=== PATIENT | male | born 1945 | race Caucasian/White ===

== ENCOUNTER 2017-12-20 09:24 | Emergency (ER) | payer MEDICARE, BC ==
--- NOTE | 2017-12-20 10:19 | EDM.PDOC ---
ED HPI GENERAL MEDICAL PROBLEM - General Chief Complaint: Cardiovascular Problem Stated Complaint: SOB,IRREGULAR HEARTBEAT,A FIB Time Seen by Provider: 12/20/17 09:50 Source of Information: Reports: Patient, Family History Limitations: Reports: No Limitations - History of Present Illness INITIAL COMMENTS - FREE TEXT/NARRATIVE: 72-year-old male has had increased problems with rate control of his atrial fibrillation over the last several days, he feels his pulse racing faster than it has in the past causing some mild shortness of breath. He has no chest pain. He did have some medication adjustments a few weeks ago with cardiology. He called the clinic today to discuss the recent medication changes and his symptoms and they sent him to the emergency room. He arrived with the atrial fibrillation rate of 79, O2 sats normal and in no distress. The has a letter with electrolytes that were drawn one month ago in the cardiology clinic , they looked normal. Onset: Gradual (Seems to be worse over the last week) - Related Data Allergies Allergy/AdvReac Type Severity Reaction Status Date / Time No Known Allergies Allergy Verified 12/20/17 09:44 Home Meds: Home Meds Hydrochlorothiazide 50 mg PO DAILY 05/13/15 [History] Latanoprost 1 drop EYEBOTH BEDTIME 05/13/15 [History] Lisinopril 40 mg PO BID 05/13/15 [History] Metoprolol Tartrate [Lopressor] 25 mg PO BID 05/13/15 [History] Multivitamin with Minerals [Multiple Vitamin] 1 tab PO DAILY 05/13/15 [History] Potassium Chloride 10 meq PO DAILY 05/13/15 [History] Sotalol HCl [Sotalol] 80 mg PO BID 05/13/15 [History] Warfarin Sodium 7.5 mg PO DAILY 05/13/15 [History] Allopurinol [Zyloprim] 100 mg PO DAILY 11/09/16 [History] Pravastatin Sodium [Pravachol] 40 mg PO QPM 11/09/16 [History] Triamcinolone Acetonide [Kenalog 0.1% Crm] 1 applic TOP TID PRN 11/09/16 [ History] Past Medical History HEENT History: Reports: Impaired Vision Cardiovascular History: Reports: Afib, High Cholesterol, Hypertension, [place] Respiratory History: Reports: Sleep Apnea Endocrine/Metabolic History: Reports: Obesity/BMI 30+ Hematologic History: Reports: Blood Transfusion(s) Dermatologic History: Reports: Cellulitis - Infectious Disease History Infectious Disease History: Reports: Chicken Pox, Measles, Mumps - Past Surgical History HEENT Surgical History: Reports: Cataract Surgery, Eye Surgery Cardiovascular Surgical History: Reports: Coronary Artery Stent Other Cardiovascular Surgeries/Procedures: stent placement 10 years GI Surgical History: Reports: Hernia Repair/Other Male Surgical History: Reports: Vasectomy Musculoskeletal Surgical History: Reports: Hip Replacement, Knee Replacement Social & Family History - Tobacco Use Smoking Status *Q: Former Smoker Years of Tobacco use: 10 Used Tobacco, but Quit: Yes Month/Year Tobacco Last Used: 20 years Second Hand Smoke Exposure: No - Caffeine Use Caffeine Use: Reports: Coffee - Alcohol Use Days Per Week of Alcohol Use: 2 Number of Drinks Per Day: 2 Total Drinks Per Week: 4 - Recreational Drug Use Recreational Drug Use: No ED ROS GENERAL - Review of Systems Review Of Systems: See Below Constitutional: Denies: Fever, Chills, Malaise HEENT: Reports: No Symptoms Respiratory: Reports: Shortness of Breath. Denies: Wheezing, Cough Cardiovascular: Reports: Palpitations, Other (Struggling with chronic lower extremity edema). Denies: Chest Pain GI/Abdominal: Denies: Abdominal Pain, Nausea, Vomiting Neurological: Reports: No Symptoms Psychiatric: Reports: No Symptoms ED EXAM, GENERAL - Physical Exam Exam: See Below Exam Limited By: No Limitations General Appearance: Alert, No Apparent Distress Head: Atraumatic Respiratory/Chest: No Respiratory Distress, Lungs Clear Cardiovascular: Irregularly Irregular. No: Tachycardia GI/Abdominal: Other (Patient is obese, abdomen is nontender) Extremities: Pedal Edema (1+ symmetric edema below the knees) Neurological: Alert, Oriented EKG INTERPRETATION Rhythm: A-Fib QRS: LBBB EKG Interpretation Comments: The patient had good rate control and no acute changes. Course - Vital Signs Last Recorded V/S: Last Vital Signs Temp 98.2 F 12/20/17 09:42 Pulse 81 12/20/17 09:42 Resp 17 12/20/17 09:42 BP Pulse Ox 98 12/20/17 09:42 - Orders/Labs/Meds Orders: Active Orders 24 hr Category Date Time Status EKG Documentation Completion [RC] ASDIRECTED Care 12/20/17 10:17 Active Chest 2V [CR] Routine Exams 12/20/17 10:11 Taken EKG 12 Lead [EK] Routine Ther 12/20/17 10:17 Ordered Labs: Laboratory Tests 12/20/17 12/20/17 Range/Units 10:30 10:30 WBC 8.5 (4.5-11.0) K/uL RBC 4.69 (4.30-5.90) M/uL Hgb 14.7 (12.0-15.0) g/dL Hct 44.3 (40.0-54.0) % MCV 95 (80-98) fL MCH 31 (27-31) pg MCHC 33 (32-36) % Plt Count 154 (150-400) K/uL Neut % (Auto) 65 (36-66) % Lymph % (Auto) 21 L (24-44) % Cobb % (Auto) 13 H (2-6) % Eos % (Auto) 2 (2-4) % Baso % (Auto) 0 (0-1) % Sodium 143 (140-148) mmol/L Potassium 4.4 (3.6-5.2) mmol/L Chloride 107 (100-108) mmol/L Carbon Dioxide 26 (21-32) mmol/L Anion Gap 10.0 (5.0-14.0) mmol/L BUN 37 H (7-18) mg/dL Creatinine 1.5 H (0.8-1.3) mg/dL Est Cr Clr Drug Dosing 44.61 mL/min Estimated GFR (MDRD) 46 L (>60) Glucose 102 (74-106) mg/dL Calcium 8.9 (8.5-10.1) mg/dL Troponin I < 0.017 (0.000-0.056) ng/mL - Re-Assessments/Exams Free Text/Narrative Re-Assessment/Exam: 12/20/17 10:42 Patient was kept on ekg monitor tech and maintained a ventricular response rate to atrial fibrillation under 100. O2 saturations also remain normal. A two-view chest x-ray was obtained as well as a CBC, BMP and troponin. 12/20/17 11:18 CBC was normal, troponin negative. BMP only showed some renal insufficiency with a creatinine of 1.5, this was compared to 1.1 just a month ago so the patient was encouraged to stay hydrated. He may want to recheck this again in the next several weeks. He decided he is going to go back on the brand name medications which he felt better on and if he is not improving satisfactorily he will recheck. Departure - Departure Time of Disposition: 11:27 Disposition: Home, Self-Care 01 Condition: Good Clinical Impression: Palpitations, Exertional shortness of breath Instructions: Atrial Fibrillation, [id number]-Ocgw Referrals: Sabino Alston MD [Primary Care Provider] - Forms: ED Department Discharge Care Plan Goals: Continue medications as prescribed, different forms or brand names may be beneficial. Avoid extra salt intake and recheck at any time if not improving satisfactorily. Return to the emergency room if you develop chest pain or worsening shortness of breath. - My Orders Last 24 Hours: My Active Orders 12/20/17 10:11 Chest 2V [CR] Routine 12/20/17 10:17 EKG Documentation Completion [RC] ASDIRECTED EKG 12 Lead [EK] Routine - Assessment/Plan Last 24 Hours: My Active Orders 12/20/17 10:11 Chest 2V [CR] Routine 12/20/17 10:17 EKG Documentation Completion [RC] ASDIRECTED EKG 12 Lead [EK] Routine
--- NOTE | 2017-12-20 16:08 | CR ---
CHEST: 2 view CLINICAL HISTORY:Dyspnea COMPARISON:None FINDINGS: There is cardiomegaly. Pulmonary vascularity is normal. There is some mild elevation left hemidiaphragm. There are some patchy density in the left lower lung field most likely patchy atelecta sis. IMPRESSION: Patchy left lower lobe density most likely patchy atelectasis. Infiltrate is felt less l ikely Cardiomegaly
== END 2017-12-20 11:27 | disposition home or self-care (01) ==
LOC: JP.ED 09:24
DX: R00.2 Palpitations (principal); R06.02 Shortness of breath; I48.91 Unspecified atrial fibrillation; I10 Essential (primary) hypertension; I25.2 Old myocardial infarction; E78.00 Pure hypercholesterolemia, unspecified; E66.9 Obesity, unspecified; Z87.891 Personal history of nicotine dependence; Z79.899 Other long term (current) drug therapy; Z79.01 Long term (current) use of anticoagulants
CPT/HCPCS: 36415; 71046; 71046-26; 80048; 84484; 85025; 93005; 93010; 99284-25

== ENCOUNTER 2019-03-09 07:04 | Day surgery (SDC) | payer BC, MEDICARE ==
[2019-03-09] MEDS ORDERED: fentaNYL 100 MCG/2 ML SDV ONE (07:21)
[2019-03-09] MEDS ORDERED: Propofol 200 MG/20 ML SDV ONE (07:21)
[2019-03-09] MEDS ORDERED: Sodium Chloride 0.9% 1,000 ML IV SCH (07:45)
[2019-03-09 10:37] VITALS: BP 145/68; PULSE 44
--- NOTE | 2019-03-09 11:42 | OR ---
DATE OF PROCEDURE: 03/09/2019 SURGEON: Luis Felipe Keane MD PROCEDURE: Colonoscopy. FINDINGS: 1. Poor colon prep. 2. Tortuous colon. 3. Transverse colon polyp, approximately 1 cm, completely removed using snare. 4. Diverticulosis, mild. PREOPERATIVE DIAGNOSIS: Positive Cologuard. POSTOPERATIVE DIAGNOSIS: Positive Cologuard. INDICATIONS: A is a 73-year-old significantly morbidly obese gentleman, who had a positive Cologuard test. The patient will undergo colonoscopy. RISKS: Risks, benefits, alternatives, and limitations including, but not limited to infection, bleeding, and perforation were explained to the patient and wished to proceed. PROCEDURE IN DETAIL: The patient was placed in left lateral decubitus position. Digital rectal exam was performed, showed external hemorrhoids. Scope was introduced and advanced atraumatically. The patient has significant tortuous sigmoid colon and ascending colon. Nonetheless, this was able to be navigated without difficulty. Unfortunately, due to the significant tortuosities and the long colon, combined with the patient's body habitus, the scope was unable to be advanced past the level of proximally the ascending colon. During this process, approximately 8 mm polyp was identified and completely removed using snare. The scope was brought back through the remainder of the colon. The prep was described as poor. Diverticulosis was described as mild, limited to sigmoid colon, and no abnormalities on retroflexion. In attempts to advance the scope, the patient was moved in multiple body positions and pressure was applied. At no point was the scope blindly advanced. The patient tolerated the procedure well. Luis Felipe Keane MD /[id number]
== END 2019-03-09 10:40 | disposition home or self-care (01) ==
LOC: JP.SDS 07:04
PROVIDERS: ATTEND Surgery
DX: D12.3 Benign neoplasm of transverse colon (principal); K57.30 Diverticulosis of large intestine without perforation or abscess without bleeding; K64.4 Residual hemorrhoidal skin tags; K63.89 Other specified diseases of intestine; I10 Essential (primary) hypertension; I48.91 Unspecified atrial fibrillation; E78.5 Hyperlipidemia, unspecified; E66.01 Morbid (severe) obesity due to excess calories; M19.90 Unspecified osteoarthritis, unspecified site; Z99.89 Dependence on other enabling machines and devices
CPT/HCPCS: 45385; 88305; J2704; J3010; J7030

== ENCOUNTER 2019-04-06 07:14 | Day surgery (SDC) | payer MEDICARE ==
[2019-04-06] MEDS ORDERED: Midazolam 1 MG/ML 2 ML SDV ONE (08:06)
[2019-04-06] MEDS ORDERED: fentaNYL 100 MCG/2 ML SDV ONE (08:06)
[2019-04-06] MEDS ORDERED: Propofol 200 MG/20 ML SDV ONE ×2 (08:07→09:19)
[2019-04-06] MEDS ORDERED: Sodium Chloride 0.9% 1,000 ML IV SCH (08:30)
[2019-04-06] MEDS ORDERED: Sodium Chloride 0.9% 10 ML ONE (09:00)
[2019-04-06] MEDS ORDERED: Lidocaine 1% with EPINEPHrine 1:100,000 50 ML MDV ONE (09:00)
[2019-04-06] MEDS ORDERED: Sodium Tetradecyl Sulfate 1% 20 MG/2 ML SDV ONE (09:00)
[2019-04-06] MEDS ORDERED: Sodium Chloride 0.9% 10 ML SDV FLUSH ONE (09:15)
[2019-04-06] MEDS ORDERED: Lidocaine 1% w/EPINEPHrine 50 ML, Sodium Bicarbonate 5 MEQ in Sodium Chloride 0.9% 950 ML INJECT ONE ×2 (09:15→09:30)
[2019-04-06] MEDS ORDERED: Lactated Ringers 1,000 ML ONE (09:49)
[2019-04-06 11:14] VITALS: BP 130/68; PULSE 47
--- NOTE | 2019-04-06 11:28 | OR ---
DATE OF PROCEDURE: 04/06/2019 SURGEON: Luis Felipe Keane MD PROCEDURES: 1. Radiofrequency ablation of left greater saphenous vein. 2. Radiofrequency ablation of right greater saphenous vein. 3. Sclerotherapy, left leg, multiple. 4. Sclerotherapy, right leg, multiple. 5. Compression wrap, left leg (54829), 20 mmHg pressure. 6. Compression wrap, right leg ([id number]), 20 mmHg pressure. COMPLICATIONS: None. GREENSMAN: None. ANESTHESIA: MAC/local. RISKS: Risks, benefits, alternatives, and limitations including, but not limited to infection, bleeding, and perforation were explained to the patient, who wished to proceed. PROCEDURE IN DETAIL: The patient was placed in supine position. The left greater saphenous vein was addressed first. This was accessed using a 21-gauge needle, which was exchanged for a 35,000th wire, then exchanged for a 7-[place] sheath. RFA probe was then advanced to greater than 3 cm from the saphenofemoral junction. Tumescent fluid was injected in a 1-cm jacket around this and verified a second and a third time. Direct even pressure was held as the probe was deployed x2 proximally and distally, and x1 in all other segments. Sheath and device were then removed, direct pressure was held for 10 minutes, and Dermabond was applied. The right leg was then performed in the same manner, same fashion, same technique, in the same sequence, and using the same equipment. Sclerotherapy was then performed on the left and right legs using 0.33% sodium tetradecyl. This was always drawn back to ensure intravascular injection only and no more than 2 mL was injected in 1 location, 6 on the right and 5 on the left. Two-layer two-stage compression wrapping was then performed in a [id number] fashion with a [id number] gradient. The patient tolerated the procedure well. Luis Felipe Keane MD /[id number]
== END 2019-04-06 11:17 | disposition home or self-care (01) ==
LOC: JP.SDS 07:14
PROVIDERS: ATTEND Surgery
DX: I87.2 Venous insufficiency (chronic) (peripheral) (principal); I87.8 Other specified disorders of veins; L97.801 Non-pressure chronic ulcer of other part of unspecified lower leg limited to breakdown of skin; I11.0 Hypertensive heart disease with heart failure; I50.9 Heart failure, unspecified; I44.0 Atrioventricular block, first degree; I48.0 Paroxysmal atrial fibrillation; E78.5 Hyperlipidemia, unspecified; G47.33 Obstructive sleep apnea (adult) (pediatric); E66.01 Morbid (severe) obesity due to excess calories; Z68.42 Body mass index [BMI] 45.0-49.9, adult; Z79.01 Long term (current) use of anticoagulants; Z79.82 Long term (current) use of aspirin; Z79.899 Other long term (current) drug therapy
CPT/HCPCS: 36471; 36475; J1642; J2250; J2704; J3010; J7030; J7120; J3490

== ENCOUNTER 2022-02-02 10:27 | Emergency (ER) | payer MEDICARE ==
[2022-02-02 11:54] VITALS: BP 116/62; PULSE 50
[2022-02-02 12:03] LABS: ESTIMATED GFR 37 (>60); TROPONIN I HIGH SENSITIVITY 22.9 pg/mL (<=60.3)
== END 2022-02-02 13:05 | disposition home or self-care (01) ==
LOC: JP.ED 10:27
DX: R07.89 Other chest pain (principal); I48.91 Unspecified atrial fibrillation; E78.00 Pure hypercholesterolemia, unspecified; I10 Essential (primary) hypertension; I25.2 Old myocardial infarction; M10.9 Gout, unspecified; Z95.5 Presence of coronary angioplasty implant and graft; Z79.899 Other long term (current) drug therapy; Z79.01 Long term (current) use of anticoagulants
CPT/HCPCS: 36415; 71046; 71046-26; 80053; 84484; 85025; 85379; 93005; 93010; 99284; 99285-25